=== PATIENT | female | born 1990 | race Hispanic/Latino ===

== ENCOUNTER 2018-09-25 14:25 | Emergency (ER) | payer BC ==
--- NOTE | 2018-09-25 15:48 | ED PDOC ---
HPI: Female Pain Time Seen by Provider: 09/25/18 15:30 Chief Complaint (Nursing): Female Genitourinary Chief Complaint (Provider): Foreign Body in vaginal History Per: Patient History/Exam Limitations: no limitations Onset/Duration Of Symptoms: Hrs Current Symptoms Are (Timing): Still Present Severity: None Pain Scale Rating Of: 0 Associated Symptoms: denies: Fever, Chills, Diarrhea, Loss Of Appetite, Constipation, Urinary Symptoms Alleviating Factors: None Additional History Per: Patient Additional Complaint(s): 28 y/o female with medical hx, comes to ED for possible condom in vaginal vault. Patient reports she was having sex approx 4am with boyfriend when they realized he no longer had the condom on. Patient states she is only sexually active with one partner. Patient denies pelvic pain, vaginal discharge/bleeding or pain on urination nausea, vomiting, diarrhea. Abnormal Vaginal Bleeding: No Past Medical History Reviewed: Historical Data, Nursing Documentation, Vital Signs Vital Signs: Last Vital Signs Temp 98.3 F 09/25/18 14:26 Pulse 114 H 09/25/18 14:26 Resp 19 09/25/18 14:26 BP 135/82 09/25/18 14:26 Pulse Ox 100 09/25/18 14:26 PATTI Report Viewed: No - Medical History PMH: No Chronic Diseases - Surgical History Surgical History: No Surg Hx - Family History Family History: States: Unknown Family Hx - Allergies Allergies/Adverse Reactions: Allergies Allergy/AdvReac Type Severity Reaction Status Date / Time No Known Allergies Allergy Verified 09/25/18 14:26 Review of Systems ROS Statement: Except As Marked, All Systems Reviewed And Found Negative Gastrointestinal: Negative for: Nausea, Vomiting, Abdominal Pain Genitourinary Female: Negative for: Dysuria, Vaginal Discharge, Vaginal Bleeding, Pelvic Pain Physical Exam - Reviewed Nursing Documentation Reviewed: Yes Vital Signs Reviewed: Yes - Physical Exam Appears: Positive for: Well, Non-toxic, No Acute Distress Head Exam: Positive for: ATRAUMATIC, NORMAL INSPECTION, NORMOCEPHALIC Skin: Positive for: Normal Color, Warm, DRY Eye Exam: Positive for: Normal appearance, PERRL ENT: Positive for: Normal ENT Inspection Neck: Positive for: Normal, Painless ROM Cardiovascular/Chest: Positive for: Regular Rate, Rhythm Respiratory: Positive for: CNT, Normal Breath Sounds Gastrointestinal/Abdominal: Positive for: Normal Exam, Soft Pelvic Exam: Positive for: Other (condom and vaginal vault found. extracted with forceps, patient tolerated procedure well, exam chaparoned by nurse Karina Marsh RN). Negative for: No Masses, Active Bleeding, Blood, Cervicitis, Discharge, Lesions, Mass, Ulcers Back: Positive for: Normal Inspection Extremity: Positive for: Normal ROM Neurological/Psych: Positive for: Awake, Alert, Normal Tone, Oriented - Laboratory Results Urine POC: Negative - ECG O2 Sat by Pulse Oximetry: 100 Medical Decision Making Medical Decision Making: --Pelvic Exam: condom found erasmo vaginal vault, extracted intact. --upreg: negative Clinical findings discussed with patient. Patient is stable for discharge home. Patient verbalizes understanding and agrees with plan. Disposition - Clinical Impression Clinical Impression: Foreign body in vagina - Patient ED Disposition Is Patient to be Admitted: No Counseled Patient/Family Regarding: Diagnosis - Disposition Disposition: Routine/Home Disposition Time: 15:46 Condition: GOOD Instructions: Acute Pelvic Pain Print Language: LITHUANIAN - POA Present On Arrival: None
[2018-09-25 16:11] VITALS: BP 128/90; PULSE 90; RESP 16; TEMP 98
[2018-09-25 20:36] VITALS: O2SAT 100
== END 2018-09-25 16:11 | disposition home or self-care (01) ==
LOC: H.ER 14:25
DX: T19.2XXA Foreign body in vulva and vagina, initial encounter (principal)